=== PATIENT | female | born 1995 | race Caucasian/White ===

== ENCOUNTER 2020-10-11 11:29 | Emergency (ER) | payer SELFPAY ==
[~2020-10-11] VITALS: Ht 172.7 cm; Wt 86.2 kg
[2020-10-11] MEDS ORDERED: Norco 5-325 Ta1 EACH PO (18:37)
== END 2020-10-11 18:45 | disposition home or self-care (01) ==
LOC: ER 11:29
DX: S03.02XA Dislocation of jaw, left side, initial encounter (principal); S93.334A Other dislocation of right foot, initial encounter; M25.572 Pain in left ankle and joints of left foot
CPT/HCPCS: 28570; 29505; 70450; 70486; 71250; 72125; 73610; 73620; 73700; 74176; 96361-59; 96365-59; 96375-59; 99152; 99283-25; J1170; J1200; J2060; J2250; J2270; J2405; J2704; J3010; J7030